=== PATIENT | female | born 1985 | race Caucasian/White ===

== ENCOUNTER 2017-08-08 19:49 | Emergency (ER) | payer MEDICAID ==
[~2017-08-08 19:49] MED LIST: EXCEDRIN CAPLET1 TAB; KEFLEX500 MG
== END 2017-08-08 22:20 | disposition home or self-care (01) ==
LOC: D.ER 19:49
DX: S61.512A Laceration without foreign body of left wrist, initial encounter (principal); W26.9XXA Contact with unspecified sharp object(s), initial encounter; Y93.89 Activity, other specified; Y92.019 Unspecified place in single-family (private) house as the place of occurrence of the external cause; F17.200 Nicotine dependence, unspecified, uncomplicated